=== PATIENT | female | born 1960 | race Hispanic/Latino ===

== ENCOUNTER → 2020-01-28 | Day surgery (SDC) | payer OTHER ==
[~2020-01-28] MED LIST: CALCIUM600 MG PO; DEXMEDETOMIDINE HCL 200 MCG/2 ML VIAL ONE; ETOMIDATE 2 MG/ML 10 ML INJ IV ONE; METOCLOPRAMIDE HCL 10 MG/2ML VIAL ONE; PANTOPRAZOLE SO40 MG PO; PROPOFOL IV EMULSION 10 MG/ML 20 ML VIAL ONE
[2020-01-28 16:00] VITALS: BP 100/62
--- NOTE | 2020-01-28 18:05 | Operative Report ---
DATE OF PROCEDURE: 01/28/2020 SURGEON: Gerardo Humphrey MD PROCEDURE: EGD with polypectomy and biopsies. INDICATIONS FOR PROCEDURE: Upper abdominal pain, nausea, sour taste in mouth. MEDICATIONS: The patient was done under MAC, please see anesthesiologist's note. PROCEDURE IN DETAIL: With the patient in the left lateral decubitus position, a flexible fiberoptic Olympus gastroscope was introduced into the esophagus under direct visualization without any difficulty. There was some patchy erythema noted in distal esophagus. The scope was then advanced with ease into the stomach. Mucosa overlying the antrum and the body revealed some patchy erythema and low-grade to moderate edema, and biopsies were obtained and sent to stain for H. pylori. Some minute hyperplastic-appearing polyps were noted in the body and some were partially excised with the cold biopsy forceps. Pylorus was of normal contour and shape, was intubated with ease and the scope was advanced all the way to the second portion of the duodenum. Biopsies were obtained from the proximal second portion and the duodenal bulb to rule out sprue. The scope was then withdrawn back into the stomach and retroflexed, mucosa overlying the fundus and the cardia appeared to be within normal limits. The scope was then straightened out, it was subsequently withdrawn, and the patient tolerated the procedure well. IMPRESSION: 1. Distal esophagitis, mild. 2. Gastritis, biopsied, biopsies sent to stain for Helicobacter pylori. 3. Gastric polyps, body, hyperplastic-appearing, some partially excised with the cold biopsy forceps. 4. Rule out sprue. PLAN: Follow up histology. Increase Protonix to 40 mg one p.o. before meals b.i.d. Gerardo Humphrey MD [facility] [place][id number] cc: Dago Sun MD
== END | disposition home or self-care (01) ==
LOC: OR 11:05
PROVIDERS: ATTEND Internal Medicine Gastroenterology
DX: K29.70 Gastritis, unspecified, without bleeding (principal); K31.7 Polyp of stomach and duodenum; K20.9 Esophagitis, unspecified; K21.9 Gastro-esophageal reflux disease without esophagitis; R43.8 Other disturbances of smell and taste; R19.5 Other fecal abnormalities; I10 Essential (primary) hypertension; Z01.810 Encounter for preprocedural cardiovascular examination; Z01.812 Encounter for preprocedural laboratory examination; Z11.59 Encounter for screening for other viral diseases
CPT/HCPCS: 43239; 93005; J2704; J2765; U0002

== ENCOUNTER → 2024-06-04 | Day surgery (SDC) | payer OTHER ==
[~2024-06-04] MED LIST changes: -DEXMEDETOMIDINE HCL 200 MCG/2 ML VIAL ONE; -ETOMIDATE 2 MG/ML 10 ML INJ IV ONE; +FISH OIL 1,0001 EAC7 PO; +HYOSCYAMINE SULFATE 0.5 MG/ML INJ ONE; +KETAMINE 50MG/5ML SYR ONE; +LIDOCAINE HCL 2% LOCAL INJ 5 ML SDV VIAL INJ ONE; +LIPITOR10 MG PO; +MAGNESIUM OXID400 MG PO; +MELATONIN3 MG PO; +METOPROLOL TARTRATE INJ 1 MG/ML VIAL ONE; +PROLIA60 MG/1 ML INJ; -PROPOFOL IV EMULSION 10 MG/ML 20 ML VIAL ONE; +PROPOFOL IV EMULSION 50 ML IV ONE; +TRAZODONE HCL50 MG PO; +VIT C PO; +VIT D3 PO
[2024-06-04] MEDS: LACTATED RINGER'S 1,000 ML ONE (10:35)
[2024-06-04 13:56] VITALS: TEMP 97.7
[2024-06-04 14:25] VITALS: BP 144/89; PULSE 86; RESP 17; O2SAT 100
== END | disposition home or self-care (01) ==
LOC: OR 09:34
PROVIDERS: ATTEND Internal Medicine Gastroenterology
DX: K29.70 Gastritis, unspecified, without bleeding (principal); D12.2 Benign neoplasm of ascending colon; K20.90 Esophagitis, unspecified without bleeding; K58.9 Irritable bowel syndrome, unspecified; K31.89 Other diseases of stomach and duodenum; K21.9 Gastro-esophageal reflux disease without esophagitis; K64.8 Other hemorrhoids; E78.5 Hyperlipidemia, unspecified; M81.0 Age-related osteoporosis without current pathological fracture; F41.9 Anxiety disorder, unspecified; Z01.810 Encounter for preprocedural cardiovascular examination; Z79.899 Other long term (current) drug therapy
CPT/HCPCS: 43239; 45378; 45385; 93005; J1980; J2003; J2470; J2765